=== PATIENT | female | born 1990 | race Caucasian/White ===

== ENCOUNTER 2018-06-09 09:52 | Emergency (ER) | payer BC, OTHER ==
[2018-06-09 10:12] VITALS: BP 110/75
--- NOTE | 2018-06-09 10:31 | UC ---
Complaint Female HPI - HPI Summary HPI Summary: Patient comes to the urgent care today with 3 days of pain with urination. Patient denies vaginal discharge has been with same partner for the past 6 years. Patient had BV last month and is concerned she might have a return of the same. No fevers back pain. - History Of Current Complaint Chief Complaint: UCGU Stated Complaint: PERSONAL Time Seen by Provider: 06/09/18 10:01 Hx Obtained From: Patient Hx Last Menstrual Period: "two weeks ago" ?: No Onset/Duration: Sudden Onset, Lasting Days - 3, Still Present Timing: Constant Severity Initially: Mild Severity Currently: Mild Pain Intensity: 2 Pain Scale Used: 0-10 Numeric Character: Burning - with urination Aggravating Factor(s): Urination Alleviating Factor(s): Nothing Associated Signs And Symptoms: Positive: Negative - Allergies/Home Medications Allergies/Adverse Reactions: Allergies Allergy/AdvReac Type Severity Reaction Status Date / Time ciprofloxacin [From Cipro] Allergy Hives Verified 06/09/18 10:07 doxycycline Allergy Hives Verified 06/09/18 10:07 tree nut Allergy Vomiting Verified 06/09/18 10:07 Tree Nuts Allergy Vomiting Verified 06/09/18 10:07 Home Medications: Home Medications L.acidoph,Paracasei, B.lactis [Probiotic] 1 each PO ONCE 06/09/18 [History Confirmed 06/09/18] Norgestimate-Ethinyl Estradiol [Tri-Sprintec Tablet] 1 each PO DAILY 06/09/18 [ History Confirmed 06/09/18] PMH/Surg Hx/FS Hx/Imm Hx Previously Healthy: Yes - Surgical History Surgical History: None - Family History Known Family History: Positive: None - Social History Occupation: Employed Full-time Lives: With Family Alcohol Use: Weekly Substance Use Type: None Smoking Status (MU): Former Smoker Length of Time of Smoking/Using Tobacco: 11/15 PPD x 1 Year When Did the Patient Quit Smoking/Using Tobacco: ~2007 Review of Systems Constitutional: Negative Skin: Negative Eyes: Negative ENT: Negative Respiratory: Negative Cardiovascular: Negative Gastrointestinal: Negative Genitourinary: Dysuria Motor: Negative Neurovascular: Negative Musculoskeletal: Negative Neurological: Negative Psychological: Negative Is Patient Immunocompromised?: No All Other Systems Reviewed And Are Negative: Yes Physical Exam Triage Information Reviewed: Yes Appearance: Well-Appearing, No Pain Distress, Well-Nourished Vital Signs: Initial Vital Signs Temp 98.3 F 06/09/18 10:03 Pulse 60 06/09/18 10:03 Resp 16 06/09/18 10:03 BP 110/75 06/09/18 10:03 Pulse Ox 100 06/09/18 10:03 Vital Signs Reviewed: Yes Eye Exam: Normal Eyes: Positive: Conjunctiva Clear ENT Exam: Normal ENT: Positive: Normal ENT inspection, Hearing grossly normal. Negative: Nasal congestion, Trismus, Muffled voice, Hoarse voice Dental Exam: Normal Neck exam: Normal Neck: Positive: Supple, Nontender Respiratory Exam: Normal Respiratory: Positive: No respiratory distress, No accessory muscle use Cardiovascular Exam: Normal Cardiovascular: Positive: RRR, Pulses Normal, Brisk Capillary Refill Abdominal Exam: Normal Abdomen Description: Positive: Nontender, No Organomegaly, Soft Pelvic Exam: Positive: Speculum Exam Normal, Lesions - erythema superior to urethera-patient identified ars area of discomfort Musculoskeletal Exam: Normal Musculoskeletal: Positive: Strength Intact, ROM Intact Neurological Exam: Normal Neurological: Positive: Alert Psychological Exam: Normal Skin Exam: Normal Diagnostics - Laboratory Diagnostic Studies Completed/Ordered: ua WNL Complaint Female Dx - Course Course Of Treatment: Patient will use a barrier cream to protect irritated skin. Patient will maintain adequate hydration. Patient will consider using a sitz bath when necessary or pouring water over her vulva during urination to prevent discomfort referral made to [facility] swabs obtained for laboratory specimens will follow up when necessary - Differential Dx/Diagnosis Provider Diagnoses: dysuria Discharge - Sign-Out/Discharge Documenting (check all that apply): Patient Departure - Discharge Plan Condition: Stable Disposition: HOME Patient Education Materials: Dysuria (ED) Referrals: [facility] [Outside] - If Needed - Billing Disposition and Condition Condition: STABLE Disposition: Home Attestation Statement User Type: Provider - I was available for consult. This patient was seen by the RIVERA. The patient was not presented to, seen by, or examined by me. -Campos
== END 2018-06-09 10:38 | disposition home or self-care (01) ==
LOC: UCCORT 09:52
DX: Z88.1 Allergy status to other antibiotic agents (principal); Z87.891 Personal history of nicotine dependence; R30.0 Dysuria
CPT/HCPCS: 81003; 84702; 87480; 87491; 87510; 87591; 87661; 99202; G0463

== ENCOUNTER 2018-12-15 19:56 | Emergency (ER) | payer BC, OTHER ==
[2018-12-15 20:12] VITALS: BP 137/68
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
== END 2018-12-15 20:43 | disposition home or self-care (01) ==
LOC: UCCORT 19:56
DX: S06.0X0A Concussion without loss of consciousness, initial encounter (principal); S00.93XA Contusion of unspecified part of head, initial encounter; Z88.1 Allergy status to other antibiotic agents; Z91.018 Allergy to other foods; Z87.891 Personal history of nicotine dependence; W22.8XXA Striking against or struck by other objects, initial encounter; Y92.9 Unspecified place or not applicable
CPT/HCPCS: 99211; G0463

== ENCOUNTER 2019-05-26 13:16 | Emergency (ER) | payer BC ==
--- OUTSIDE RECORDS SUMMARY | 2019-05-26 13:28 | XMS REPORT | Continuity of Care Document ---
:1990 External Reference #:[id number] Author Name Andrez Bueno Address 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 Cameron Skinner MD Primary Care Physician Unavailable Payers Date Identification Numbers Payment Provider Subscriber Policy Number: [id number] BC/BS Of ART [place] PayID: [id number] [address] [address] [place] [address] Family History Date Family Member(s) Observation Comments Father rosacea Mother Hypothyroidism Paternal Grandfather Bladder Cancer Paternal Grandmother due to Lung Cancer () Maternal Grandfather due to Stroke () Maternal Grandmother due to Breast Cancer () Social History Type Date Description Comments Sex Unknown Marital Status Not Lives With Alone 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[employer] Tobacco Use Start: Unknown Never Smoked Cigarettes ETOH Use Social Alcohol weekly Tobacco Use Start: Unknown Never Smoked Cigarettes Smoking Status Reviewed: 05/22/19 Never Smoked Cigarettes Exercise Type/Frequency Exercises regularly Currently Active Patient is currently sexually active STD's No STD History Allergies, Adverse Reactions, Alerts Active Allergies Reaction Severity Comments Date Doxycycline hives,vomitting 10/04/2018 Cipro hives, vomitting 10/04/2018 Medications Active Medications SIG Qnty Indications Ordering Provider Date Tri-Sprintec take one by 84tabs Z30.8 Mckenzie Khan, 10/04/2018 mouth daily Afnp-C 0.18/0.215/0.25 mg-35 mcg Tablets History Medications Betamethasone Valerate apply to affected 45gm L50.9 Azucena Justine 04/16/2019 - area twice a day, [facility] 05/22/2019 0.1% Cream do not put on face. Ortho Tri-Cyclen (28) 1 by mouth every Unknown - day 04/16/2019 0.18/0.215/0.25 mg-35 mcg Tablets Vital Signs Date Vital Result Comment 05/22/2019 11:06am BP Systolic 116 mmHg BP Diastolic 80 mmHg Heart Rate 66 /min Body Temperature 97.8 F Respiratory Rate 15 /min Height 61 inches 5'1" Weight 102.00 lb BMI (Body Mass Index) 19.3 kg/m2 04/16/2019 3:02pm BP Systolic 100 mmHg BP Diastolic 60 mmHg Heart Rate 64 /min Body Temperature 98.6 F Respiratory Rate 16 /min Height 61 inches 5'1" Weight 103.00 lb BMI (Body Mass Index) 19.5 kg/m2 10/04/2018 6:00pm BP Systolic 100 mmHg BP Diastolic 60 mmHg Heart Rate 64 /min Body Temperature 98.6 F Respiratory Rate 16 /min Height 61 inches 5'1" Weight 100.00 lb BMI (Body Mass Index) 18.9 kg/m2 Encounters Type Date Location Provider Dx Diagnosis Office Visit 04/16/2019 Main Office Azucena Fletcher L50.9 Urticaria, unspecified 3:15p [facility] Office Visit 10/04/2018 Main Office Xin Bowser, Z30.8 Encounter for other 6:15p 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 (Follow up)AllComments:Medication Management Patient Understands medications she's taking? Yes No Are there Barriers to Adherence? Yes No Has the patient been asked about herbal supplements and therapies, and OTC meds? Yes No Care Plan1. Patient has been queried about patient's goals/preferences and functional/lifestyle goals at relevant visits. If relevant, describe: na2. Treatment goals as explained to the patient: abovecontinued sx resolution prevention heatlh maintenance and disease prevention 3. Are there barriers to meeting treatment goals? Yes No If Yes, please describe:4. Self-Management goals as described to the patient: Yes No there is no evidence of infection , looks more like a reaction or irritation that seems resolving,you can use a hydrocort cream for the itching and it ought to continue to resolve oc's will be refilled , routine rat trapper due 2020
[2019-05-26 13:35] VITALS: BP 119/77
--- NOTE | 2019-05-26 15:02 | UC ---
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 Pt c/o vaginal itch/pain x3 days. Noticed thick white vaginal discharge since yesterday. Denies any odor. No fever /chills. Nothing taken OTC. " -she has a new sexual partner and had unprotected sex. got period during intercourse. she has had yeast and BV in past. ?s trichomonas. no odor. + itchiness. feels like she gets BV when she gets her period and when she is sexually active. no lesion. - History Of Current Complaint Chief Complaint: UCGeneralIllness Stated Complaint: PERSONAL Time Seen by Provider: 05/26/19 14:55 Hx Last Menstrual Period: 05/21/19 Pain Intensity: 0 - Allergies/Home Medications Allergies/Adverse Reactions: Allergies Allergy/AdvReac Type Severity Reaction Status Date / Time ciprofloxacin [From Cipro] Allergy Hives Verified 05/26/19 13:29 doxycycline Allergy Hives Verified 05/26/19 13:29 Tree Nuts Allergy Vomiting Verified 05/26/19 13:29 PMH/Surg Hx/FS Hx/Imm Hx Previously Healthy: Yes - Surgical History Surgical History: None - Family History Known Family History: Positive: None, Cardiac Disease, Hypertension, Diabetes - Social History Alcohol Use: Occasionally Substance Use Type: None Smoking Status (MU): Former Smoker Length of Time of Smoking/Using Tobacco: 11/15 PPD x 1 Year When Did the Patient Quit Smoking/Using Tobacco: ~2007 Review of Systems All Other Systems Reviewed And Are Negative: Yes Constitutional: Positive: Negative Skin: Positive: Negative ENT: Positive: Negative Respiratory: Positive: Negative Cardiovascular: Positive: Negative Gastrointestinal: Positive: Negative Genitourinary: Positive: Negative. Negative: Dysuria, Hematuria, Frequency, Urgency Motor: Positive: Negative Neurovascular: Positive: Negative Musculoskeletal: Positive: Negative Neurological: Positive: Negative Psychological: Positive: Negative Is Patient Immunocompromised?: No Physical Exam Triage Information Reviewed: Yes Appearance: Well-Appearing, No Pain Distress, Well-Nourished Vital Signs: Initial Vital Signs Temp 98.3 F 05/26/19 13:29 Pulse 68 05/26/19 13:29 Resp 16 05/26/19 13:29 BP 119/77 05/26/19 13:29 Pulse Ox 100 05/26/19 13:29 Vital Signs Reviewed: Yes Eye Exam: Normal Respiratory Exam: Normal Respiratory: Positive: Lungs clear Cardiovascular Exam: Normal Cardiovascular: Positive: RRR Abdominal Exam: Normal Abdomen Description: Positive: Nontender, Soft. Negative: CVA Tenderness (R), CVA Tenderness (L), Distended, Guarding Musculoskeletal Exam: Normal Neurological Exam: Normal Psychological Exam: Normal Skin Exam: Normal Complaint Female Dx - Course Course Of Treatment: self swab for affirm/trich. will treat for valdemar with diflucan. will call pt to treat w/ flagyl if positive for BV or trich. she is very agreeable with this plan. cont oral OCP. recommend condoms to help prevent STDs. - Differential Dx/Diagnosis Differential Diagnosis/HQI/PQRI: Sexually Transmitted Disease, Other - yeast Provider Diagnosis: Vagina itching Discharge - Sign-Out/Discharge Documenting (check all that apply): Patient Departure All imaging exams completed and their final reports reviewed: No Studies - Discharge Plan Condition: Stable Disposition: HOME Prescriptions: Fluconazole [Diflucan] 150 mg PO ONCE #1 tab Patient Education Materials: Yeast Infection (ED) Referrals: Xin Bowser NP [Primary Care Provider] - 2 Weeks Additional Instructions: You are being treted for yeast infection/valdemar with diflucan. We are sending out a culture for trichamonas and BV. If they are positive, you should be getting a call from us to treat you with those. Follow up sooner if your symptoms increase or persist. - Billing Disposition and Condition Condition: STABLE Disposition: Home
--- NOTE | 2019-05-28 07:41 | UC ---
- Progress Note Progress Note: please call the pt. lab results : + Gardnerella / BV will call in Flagyl x 7 days Course/Dx - Diagnoses Provider Diagnoses: Vagina itching Discharge - Sign-Out/Discharge Documenting (check all that apply): Patient Departure All imaging exams completed and their final reports reviewed: No Studies - Discharge Plan Condition: Stable Disposition: HOME Prescriptions: Fluconazole [Diflucan] 150 mg PO ONCE #1 tab Patient Education Materials: Yeast Infection (ED) Referrals: Xin Bowser NP [Primary Care Provider] - 2 Weeks Additional Instructions: You are being treted for yeast infection/valdemar with diflucan. We are sending out a culture for trichamonas and BV. If they are positive, you should be getting a call from us to treat you with those. Follow up sooner if your symptoms increase or persist. - Billing Disposition and Condition Condition: STABLE Disposition: Home
== END 2019-05-26 15:16 | disposition home or self-care (01) ==
LOC: UCCORT 13:16
DX: N76.0 Acute vaginitis (principal); B96.89 Other specified bacterial agents as the cause of diseases classified elsewhere; Z88.1 Allergy status to other antibiotic agents; Z87.891 Personal history of nicotine dependence
CPT/HCPCS: 87480; 87510; 87660; 99212; G0463

== ENCOUNTER 2019-07-24 07:11 | Emergency (ER) | payer BC ==
--- OUTSIDE RECORDS SUMMARY | 2019-07-24 07:22 | XMS REPORT | Continuity of Care Document ---
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 Medicine Problems Description No Information Available Social History Type Date Description Comments Sex Unknown Tobacco Use Start: Unknown Never Smoked Cigarettes ETOH Use Social Alcohol weekly Tobacco Use Start: Unknown Never Smoked Cigarettes Smoking Status Reviewed: 06/12/19 Never Smoked Cigarettes Exercise Type/Frequency Exercises regularly Allergies, Adverse Reactions, Alerts Active Allergies Reaction Severity Comments Date Doxycycline hives,vomitting 10/04/2018 Cipro hives, vomitting 10/04/2018 Medications Active Medications SIG Qnty Indications Ordering Provider Date Tri-Sprintec take one by 84tabs N76.[address] [facility], 10/04/2018 mouth daily Afnp-C 0.18/0.215/0.25 mg-35 mcg Tablets History Medications Bactrim DS 2 po x 1 then 1 po 10tabs Azucena Fletcher 06/27/2019 - 800-160mg bid x 4 more days SUSU Justice 07/05/2019 Tablets Macrobid 1 by mouth twice a 10caps Mckenzie 06/19/2019 - 100mg Capsules day with meals x 5 [place], Afnp-C 06/27/2019 days Metronidazole take 1 tablet by 14tabs N76.0 Azucena Fletcher 06/12/2019 - 500mg mouth twice a day SUSU Justice 06/19/2019 Tablets for 7 days Metronidazole 1 applicator 45gm N76.0 Azucena Fletcher 06/12/2019 - 0.75% Gel vaginally daily as SUSU Justice 07/19/2019 needed after sex and once after menses Betamethasone apply to affected 45gm L50.9 Azucena Fletcher 04/16/2019 - Valerate area twice a day, SUSU Justice 05/22/2019 0.1% Cream do not put on face. Immunizations CPT Code Status Date Vaccine Lot # [id number] Given 05/01/2008 gardasil 9 [id number] Given 12/24/2007 gardasil 9 [id number] Given 10/18/2007 gardasil 9 76866 Given 11/02/2005 Tetanus And Diptheria Adult Preservative Free >7Yrs Vital Signs Date Vital Result Comment 07/19/2019 3:59pm BP Systolic 110 mmHg BP Diastolic 70 mmHg Heart Rate 64 /min Body Temperature 97.9 F Respiratory Rate 18 /min Height 61 inches 5'1" Weight 103.00 lb BMI (Body Mass Index) 19.5 kg/m2 06/19/2019 9:35am BP Systolic 106 mmHg BP Diastolic 60 mmHg Heart Rate 66 /min Body Temperature 98.6 F Respiratory Rate 16 /min Height 61 inches 5'1" Weight 103.25 lb BMI (Body Mass Index) 19.5 kg/m2 Results Test Date Facility Test Result H/L Range Note Ua - Micro (Fma) 06/19/2019 [facility] Appearance CLOUDY (607)- - Color YELLOW Glucose, Urine (Fma/CMC/CTX) NEG Bilirubin NEG Ketones NEG SP Grav 1.015 Blood SMALL PH 6.0 Protein NEG Urobil 0.2 Nitrite NEG Leukocytes (Fma/CMC/Centrex) SMALL Hyaline - /Lpf Granular - /Lpf WBC (Fma,[facility]) 20-23 RBC 3-5 Mucus (Fma/CBC/[facility]rex) - /Lpf Epith OCC /Lpf Bacteria 1+ /Hpf Amorphous (Fma/CMC/[facility]rex) - /Lpf Crystals, Fluid (Fma/CMC/CTX) - Z#Comments - Urine Culture And 06/19/2019 [facility] Urine Culture SEE RESULT 1 Sensitivities BELOW Vaginitis Plus Nuswab 06/12/2019 [facility] Atopobium vaginae Low - 0 Score 2 [address] [place] [address] (607)- - Bvab 2 Low - 0 Score Megasphaera 1 Low - 0 Score 3 Radha albicans, Christiane Negative Negative Radha glabrata, Christiane Negative Negative 4 Chlamydia trachomatis, Christiane Negative Negative Neisseria gonorrhoeae, Christiane Negative Negative Trich vag by Christiane Negative Negative Laboratory test 05/26/2019 [facility] Gardnerella/Yeast: Vaginal SEE RESULT 5 , 6 finding Dna BELOW 1 SEE RESULT BELOW Name: ROXANNESOHEILAY Kassandra : [address]: Mckenzie Khan NP Acct: [id number] Unit: [id number] AGE: 29 Location: [facility] Re06/19/19 SEX: F Status: REG REF SPEC: [id number] GABBY: 06/19/19-[address]: Mckenzie Khan NP REQ: [id number] RECD: 06/19/19 STATUS: COMP _ SOURCE: URINE SPDESC: ORDERED: Urine Culture COMMENTS: 1 eller urine top [id number] Urine Source: Random Procedure Result Reported Site Urine Culture Final 06/22/19- 0946 ML Organism 1 PROTEUS MIRABILIS [place] Count 75-100,000 (Many) CFU/ML 1. PROTEUS MIRABILIS M.I.C. RX --------- ------ Ampicillin S Cefazolin S Cefepime S Ceftriaxone S Ciprofloxacin <=0.25 S Gentamicin <=1 S Levofloxacin <=0.12 S Meropenem 1 S Nitrofurantoin 128 R Tetracycline >=16 R Pipercillin/Tazobactam <=4 S Trimethoprim/Sulfamethoxazole <=20 S Aztreonam S Contact the Microbiology Department for any additional antibiotic reporting. * ML - Main Lab . END OF REPORT DEPARTMENT OF PATHOLOGY, [address] [place] [address] Charles Manzo M.D. Director [facility] # [id number] 2 1 orange aptima swab 3 Calculate total score by adding the 3 individual bacterial vaginosis (BV) marker scores together. Total score is interpreted as follows: Total score 0-1: Indicates the absence of BV. Total score 2: Indeterminate for BV. Additional clinical data should be evaluated to establish a diagnosis. Total score 3-6: Indicates the presence of BV. This test was developed and its performance characteristics determined by [facility]. It has not been cleared or approved by the Food and Drug Administration. The FDA has determined that such clearance or approval is not necessary. 4 This test was developed and its performance characteristics determined by [facility]. It has not been cleared or approved by the Food and Drug Administration. The FDA has determined that such clearance or approval is not necessary. 5 Would you like to order Trichomonas Vaginalis RNA testing? 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 Y Procedure Result Reported Site Gardnerella/Yeast: Vaginal DNA Final 05/27/19- 1550 ML Organism 1 POSITIVE GARDNERELLA Organism 2 Negative Radha The presence of G. vaginalis, although suggestive, is not diagnostic for bacterial vaginosis. Results should be interpreted in conjuction with other clinical and laboratory data available. Women with vaginal discharge should be evaluated for risk factors of cervicitis and pelvic inflammatory disease, toxic shock syndrome (S.aureus), and if present, evaluated for organisms not included in this assay such as N. gonorrhoeae, C. trachomatis, Mobiluncus, Mycoplasma and/or Prevotella. Mixed infections may occur. The performance of this test on patient specimens collected during or immediately after antimicrobial therapy is unknown. The presence or absence of Radha species, or G. vaginalis cannot be used as a test for therapeutic success or failure. Trichomonas: Vaginal DNA Probe Final 05/27/19- 1550 ML Organism 1 Negative Trichomonas The presence or absence of T. vaginalis cannot be used as a test for therapeutic success or failure. * ML - Main Lab . END OF REPORT DEPARTMENT OF PATHOLOGY, [address] [place] [address] Charles Manzo M.D. Director [facility] # [id number] Procedures Description No Information Available Medical Devices Description No Information Available Encounters Type Date Location Provider Dx Diagnosis Office Visit 06/19/2019 Main Office Mckenzie Khan, N39.0 Urinary tract 9:30a Afnp-C infection, site not specified Office Visit 06/12/2019 Main Office Azucena Fletcher N76.0 Acute vaginitis 10:30a SUSU Justice Office Visit 05/22/2019 Main Office Mckenzie Antonioevelyn, S51.011A Laceration without 11:00a Afnp-C foreign body of right elbow, init encntr R21 Rash and other nonspecific skin eruption 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 W26.8xxA Contact with other sharp object(s), NEC, initial encounter Office Visit 04/16/2019 3:15p Main Office Azucena Fletcher L50.9 Urticaria, SUSU Justice unspecified Assessments Date Code Description Provider 07/19/2019 L20.9 Atopic dermatitis, unspecified Vandana Ly, MARIAJOSE 06/19/2019 N39.0 Urinary tract infection, site not Mckenzie Mariselaevelyn, Afnp-C specified 06/12/2019 N76.0 Acute vaginitis Azucena Justice NP 05/22/2019 S51.011A Laceration without foreign body of right Mckenzie Erin, Afnp-C elbow, initial enco 05/22/2019 R21 Rash and other nonspecific skin eruption Mckenzie Khan Afnp-C 05/22/2019 Z79.3 intermission coordinator (current) use of hormonal Mckenzie Bessorf, Afnp- C 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 05/22/2019 W26.8xxA Contact with other sharp object(s), not Mckenzie Mariselaevelyn , Afnp-C elsewhere classified, initial encounter 04/16/2019 L50.9 Urticaria, unspecified Azucena Justice NP Plan of Treatment 07/19/2019 - Vandana Ly, FNPL20.9 Atopic dermatitis, unspecifiedComments: conservative cares for at least 2-3 weekschange lotion and soap to nonscented, hypoallergenic such as cetaphiluse [id number]-[id number] hydrocortisone twice daily to affected areas for at least 2 weeks, maytake 3 to get to 100%Call ROB if condition changes/worsens in any wayAllComments:Medication Management Patient Understands medications he 's taking? Yes No Are there Barriers to Adherence? Yes No Has the patient been asked about herbal supplements and therapies, andOTC meds? Yes No As always, we strongly encourage a healthy diet and making physical activity a part of your every day life. If you have questions about how or where to start, please contact the office. Functional Status Description No Information Available Mental Status Description No Information Available Referrals Description No Information Available
--- OUTSIDE RECORDS SUMMARY | 2019-07-24 07:22 | XMS REPORT | Continuity of Care Document ---
:1990 External Reference #:[id number] Author Name Andrez Bueno Address [address] [facility] [place] [address] Care Team Providers Name Role Phone Cameron Skinner MD Care Team Information Clinical Trial Coordinator Unavailable Cameron Skinner MD Primary Care Physician Unavailable Payers Date Identification Numbers Payment Provider Subscriber Policy Number: [id number] BC/BS Of [employer] PayID: [id number] [address] [address] [place] [address] Family History Date Family Member(s) Observation Comments [...] Xin Bowser, Z30.8 Encounter for other 6:15p 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 (Follow up)AllComments:Medication Management Patient Understands medications she's taking? Yes No Are there Barriers to Adherence? Yes No Has the patient been asked about herbal supplements and therapies, and OTC meds? Yes No Care Plan1. Patient has been queried about patient's goals/ preferences and functional/lifestyle goals at relevant visits. If [...] resolve oc's will be refilled , routine car wiper due 2020
--- OUTSIDE RECORDS SUMMARY | 2019-07-24 07:22 | XMS REPORT | Continuity of Care Document ---
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 Problems Description No Information Available Social [...] Medications Active Medications SIG Qnty Indications Ordering Date Provider Metronidazole take 1 tablet by 14tabs N76.0 Azucena Fletcher 06/12/2019 500mg mouth twice a day SUSU Justice Tablets for 7 days Metronidazole 1 applicator 45gm N76.0 Auzcena Fletcher 06/12/2019 0.75% Gel vaginally daily as SUSU Justice needed after sex and once after menses Tri-Sprintec take one by mouth 84tabs N76.0 Mckenzie 10/04/2018 daily Andrez Khan 0.18/0.215/0.25 mg-35 mcg Tablets History Medications Betamethasone Valerate apply to affected 45gm L50.9 Azucena Fletcher 04/16/2019 - area twice a day, SUSU Justice 05/22/2019 0.1% Cream do not put on face. Immunizations Description No Information Available Vital Signs Date Vital Result Comment 06/12/2019 10:36am BP Systolic 106 mmHg BP Diastolic 60 mmHg Heart Rate 72 /min Body Temperature 98.1 F Respiratory Rate 16 /min Height 61 inches 5'1" Weight 103.12 lb BMI (Body Mass Index) 19.5 kg/m2 05/22/2019 11:06am BP Systolic 116 mmHg BP Diastolic 80 mmHg Heart Rate 66 /min Body Temperature 97.8 F Respiratory Rate 15 /min Height 61 inches 5'1" Weight 102.00 lb BMI (Body Mass Index) 19.3 kg/m2 Results Test Date Facility Test Result H/L Range Note Vaginitis Plus 06/12/2019 [facility] Atopob[facility] Low - 0 1 Nuswab [address] [facility] [place] [address] (496)- - Bvab 2 Low - 0 Score Megasphaera 1 Low - 0 Score 2 Radha albicans, Christiane Negative Negative Radha glabrata, Christiane Negative Negative 3 Chlamydia trachomatis, Christiane Negative Negative Neisseria gonorrhoeae, Christiane Negative Negative Trich vag by Christiane Negative Negative Laboratory test 05/26/2019 [facility] Gardnerella/Yeast: Vaginal SEE RESULT 4 , 5 finding Dna BELOW 1 1 orange aptima swab 2 Calculate total score by adding the 3 individual bacterial vaginosis (BV) marker scores together. Total score is interpreted as follows: Total score 0-1: Indicates the absence of BV. Total score 2: Indeterminate for BV. Additional clinical data should be evaluated to establish a diagnosis. Total score 3-6: Indicates the presence of BV. This test was developed and its performance characteristics determined by [facility]. It has not been cleared or approved by the Food and Drug Administration. The FDA has determined that such clearance or approval is not necessary. 3 This test was developed and its performance characteristics determined by [facility]. It has not been cleared or approved by the Food and Drug Administration. The FDA has determined that such clearance or approval is not necessary. 4 Would you like to order Trichomonas Vaginalis RNA testing? 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 END OF REPORT DEPARTMENT OF PATHOLOGY, [address] [place] [address] Charles Manzo M.D. 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 W26.8xxA Contact with other sharp object(s), NEC, initial encounter Office Visit 04/16/2019 3:15p Main Office Azucena Fletcher L50.9 UrticariaVinh NP unspecified Assessments Date Code Description Provider 06/12/2019 N76.0 Acute vaginitis Azucena Justice NP 05/22/2019 S51.011A Laceration without foreign body of right Andrez Bueno elbow, initial enco 05/22/2019 R21 Rash and other nonspecific skin eruption Andrez Bueno 05/22/2019 Z79.3 [facility] (current) use of hormonal Jennifer Bueno 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 05/22/2019 W26.8xxA Contact with other sharp object(s), not Andrez Bueno elsewhere classified, initial encounter 04/16/2019 L50.9 Urticaria, unspecified Azucena Justice NP Plan of Treatment 06/12/2019 - Azucena Justice, NPN76.0 Acute vaginitisNew Medication: Metronidazole 500 mg - take 1 tablet by mouth twice a day for 7 daysMetronidazole 0.75 % - 1 applicator vaginally daily as needed after sex and once after mensesComments:Avoid: douchingpanty linerspantyhoseocclusive pantsregular use of condoms may help prevent BV because semen is alkaline and may trigger symptoms for some womenYou can resume sexual relations once you are feeling betterAllComments:Medication Management Patient Understands medications he 's taking? Yes No Are there Barriers to Adherence? Yes No Has the patient been asked about herbal supplements and therapies, andOTC meds ? Yes No Care Plan1. Patient has been queried about patient's goals/preferences and functional/lifestyle goals at relevant visits. If relevant, describe: na2. Treatment goals as explained to the patient: above3. Are there barriers to meeting treatment goals? Yes No If Yes, please describe:4. Self-Management goals as described to the patient: Yes NoAs always, we strongly encourage a healthy diet and making physical activity a part of your every day life. If you have questions about how or where to start, please contact the office. Functional Status Description No Information Available Mental Status Description No Information Available Referrals Description No Information Available
--- OUTSIDE RECORDS SUMMARY | 2019-07-24 07:22 | XMS REPORT | Continuity of Care Document ---
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 Immunizations CPT Code Status Date Vaccine Lot # [id number] Given 05/01/2008 gardasil 9 [id number] Given 12/24/2007 gardasil 9 67845 Given 10/18/2007 gardasil 9 20616 Given 11/02/2005 Tetanus And Diptheria Adult Preservative Free >7Yrs Vital Signs Date Vital Result Comment 06/19/2019 9:35am BP Systolic 106 mmHg BP Diastolic 60 mmHg Heart Rate 66 /min Body Temperature 98.6 F Respiratory Rate 16 /min Height 61 inches 5'1" Weight 103.25 lb BMI (Body Mass Index) 19.5 kg/m2 06/12/2019 10:36am BP Systolic 106 mmHg BP Diastolic 60 mmHg Heart Rate 72 /min Body Temperature 98.1 F Respiratory Rate 16 /min Height 61 inches 5'1" Weight 103.12 lb BMI (Body Mass Index) 19.5 kg/m2 Results Test Date Facility Test Result H/L Range Note Vaginitis Plus 06/12/2019 [facility] At[facility] Low - 0 1 Nuswab [address] [facility] [place] [address] (411)- - Bvab 2 Low - 0 Score Megasphaera 1 Low - 0 Score 2 Ardha albicans, Christiane Negative Negative Radha glabrata, Christiane [...] developed and its performance characteristics determined by [facility]. It has not been cleared or approved by the Food and Drug Administration. The FDA has determined that such clearance or approval is not necessary. 3 This test was developed and its performance characteristics determined by [facility]. It has not been cleared or approved by the Food and Drug Administration. The FDA has determined that such clearance or approval is not necessary. 4 Would you like to order Trichomonas Vaginalis RNA testing? 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 END OF REPORT DEPARTMENT OF PATHOLOGY, [address] [place] [address] Charles Manzo M.D. Director [facility] # [id number] Procedures Description No Information Available Medical Devices Description No Information Available Encounters Type Date Location Provider Dx Diagnosis Office Visit 06/12/2019 Main Office Azucena Fletcher N76.0 Acute vaginitis 10:30a SUSU Justice Office Visit 05/22/2019 Main Office Mckenzie Khan, S51.011A Laceration without 11:00a Afnp-C foreign body of right elbow, init encntr R21 Rash and other nonspecific skin eruption Z79.3 [facility] (current) use of hormonal 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 W26.8xxA Contact with other sharp object(s), NEC, initial encounter Office Visit 04/16/2019 3:15p Main Office Azucena Fletcher L50.9 Urticaria, SUSU Justice unspecified Assessments Date Code Description Provider 06/19/2019 N39.0 Urinary tract infection, site not Rangelnp-C specified 06/12/2019 N76.0 Acute vaginitis Azucena Justice, SUSU 05/22/2019 S51.011A Laceration without foreign body of right Mckenzie Khan, Afnp-C elbow, initial enco 05/22/2019 R21 Rash and other nonspecific skin eruption Mckenzie Khan, Afnp-C 05/22/2019 Z79.3 [facility] (current) use of hormonal Rangelnp- C 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 05/22/2019 W26.8xxA Contact with other sharp object(s), not Mckenzie Khan , Riananp-C elsewhere classified, initial encounter 04/16/2019 L50.9 Urticaria, unspecified Azucena Justice NP Plan of Treatment 06/19/2019 - Rangelnp-CN39.0 Urinary tract infection, site not specifiedAllNew Medication:Macrobid 100 mg - 1 by mouth twice a day with meals x 5 daysComments:Medication Management Patient Understands medications she's taking? Yes no Are there Barriersto Adherence? Yes No na Has the patient been asked about herbal supplements and therapies, andOTC meds? Yes No Care Plan1. Patient has been queried about patient's goals/ preferences and functional/lifestyle goals at relevant visits. If relevant, describe: na2. Treatment goals as explained to the patient: abovesx resolution 3. Are there barriers to meeting treatment goals? Yes No If Yes, please describe:4. Self-Management goals as described to the patient: Yes No start antibx if sx worsen otherwise push fluids and await culture Functional Status Description No Information Available Mental Status Description No Information Available Referrals Description No Information Available
[2019-07-24 07:24] VITALS: BP 118/76
[2019-07-24] MEDS ORDERED: Sulfamethox/Trimethoprim DS 800/160* TAB PO ONE (07:48)
--- NOTE | 2019-07-24 07:49 | UC ---
Complaint Female HPI - HPI Summary HPI Summary: 29-year-old woman comes in with a chief complaint of burning with urination and increased frequency and urgency all started last evening. No fevers no chills. Denies any suprapubic pain or flank pain. Denies any abnormal vaginal discharge or any concern of STI. She had a urinary tract infection in June 2019 which was successfully treated with Bactrim. - History Of Current Complaint Chief Complaint: UCGU Stated Complaint: URINARY COMPLAINT Time Seen by Provider: 07/24/19 07:23 Hx Last Menstrual Period: 05/21/19 Pain Intensity: 0 - Allergies/Home Medications Allergies/Adverse Reactions: Allergies Allergy/AdvReac Type Severity Reaction Status Date / Time ciprofloxacin [From Cipro] Allergy Hives Verified 07/24/19 07:24 doxycycline Allergy Hives Verified 07/24/19 07:24 Tree Nuts Allergy Vomiting Verified 07/24/19 07:24 PMH/Surg Hx/FS Hx/Imm Hx Previously Healthy: Yes - Surgical History Surgical History: None - Family History Known Family History: Positive: None, Cardiac Disease, Hypertension, Diabetes - Social History Alcohol Use: Occasionally Substance Use Type: None Smoking Status (MU): Former Smoker Length of Time of Smoking/Using Tobacco: 11/15 PPD x 1 Year When Did the Patient Quit Smoking/Using Tobacco: ~2007 Review of Systems All Other Systems Reviewed And Are Negative: Yes Constitutional: Positive: Negative Skin: Positive: Negative Eyes: Positive: Negative ENT: Positive: Negative Respiratory: Positive: Negative Cardiovascular: Positive: Negative Gastrointestinal: Positive: Negative Motor: Positive: Negative Neurovascular: Positive: Negative Musculoskeletal: Positive: Negative Neurological: Positive: Negative Psychological: Positive: Negative Is Patient Immunocompromised?: No Physical Exam Triage Information Reviewed: Yes Appearance: Well-Appearing, No Pain Distress, Well-Nourished Vital Signs: Initial Vital Signs Temp 98.8 F 07/24/19 07:21 Pulse 72 07/24/19 07:21 Resp 14 07/24/19 07:21 BP 118/76 07/24/19 07:21 Pulse Ox 100 07/24/19 07:21 Vital Signs Reviewed: Yes Eye Exam: Normal Eyes: Positive: Conjunctiva Clear Neck: Positive: Supple Respiratory: Positive: Lungs clear, Normal breath sounds, No respiratory distress Cardiovascular: Positive: RRR Abdomen Description: Positive: Nontender. Negative: CVA Tenderness (R), CVA Tenderness (L) Musculoskeletal: Positive: ROM Intact Neurological: Positive: Alert, Muscle Tone Normal Psychological: Positive: Age Appropriate Behavior Skin Exam: Normal Complaint Female Dx - Course Course Of Treatment: Patient was successfully treated for her urinary tract infection in June with Bactrim therefore we'll treat with Bactrim again. Patient also had bacterial vaginosis in May 2019 she denies any abnormal vaginal discharge or concern of a vaginitis or STI at this time. Follow-up with her primary care doctor if she is having recurrent urinary tract infections. Reevaluate sooner if worse or not improving or any questions or concerns. - Differential Dx/Diagnosis Provider Diagnosis: UTI (urinary tract infection) Discharge ED - Sign-Out/Discharge Documenting (check all that apply): Patient Departure All imaging exams completed and their final reports reviewed: No Studies - Discharge Plan Condition: Stable Disposition: HOME Prescriptions: Sulfamethox/Trimethoprim DS* [Bactrim DS 800/160 TAB*] 1 tab PO BID #13 tab Patient Education Materials: Urinary Tract Infection in Women (ED) Referrals: Xin Bowser NP [Primary Care Provider] - Additional Instructions: FOLLOW UP WITH YOUR DOCTOR IF NOT COMPLETELY IMPROVED. GET REEVALUATED SOONER IF WORSE OR ANY QUESTIONS OR CONCERNS. - Billing Disposition and Condition Condition: STABLE Disposition: Home
--- NOTE | 2019-07-26 07:14 | UC ---
- Progress Note Progress Note: + E. Coli + Proteus on bactrim await sensitivity no change ljj Course/Dx - Diagnoses Provider Diagnoses: UTI (urinary tract infection) Discharge ED - Sign-Out/Discharge Documenting (check all that apply): Post-Discharge Follow Up All imaging exams completed and their final reports reviewed: No Studies - Discharge Plan Condition: Stable Disposition: HOME Prescriptions: Sulfamethox/Trimethoprim DS* [Bactrim DS 800/160 TAB*] 1 tab PO BID #13 tab Patient Education Materials: Urinary Tract Infection in Women (ED) Referrals: Xin Bowser NP [Primary Care Provider] - Additional Instructions: FOLLOW UP WITH YOUR DOCTOR IF NOT COMPLETELY IMPROVED. GET REEVALUATED SOONER IF WORSE OR ANY QUESTIONS OR CONCERNS. - Billing Disposition and Condition Condition: STABLE Disposition: Home
== END 2019-07-24 07:53 | disposition home or self-care (01) ==
LOC: UCCORT 07:11
DX: N39.0 Urinary tract infection, site not specified (principal); B96.20 Unspecified Escherichia coli [E. coli] as the cause of diseases classified elsewhere; B96.4 Proteus (mirabilis) (morganii) as the cause of diseases classified elsewhere; Z87.891 Personal history of nicotine dependence
CPT/HCPCS: 81003; 84702; 87077; 87086; 87186; 99212; A9270-GY; G0463

== ENCOUNTER 2020-01-19 07:08 | Emergency (ER) | payer BC ==
--- OUTSIDE RECORDS SUMMARY | 2020-01-19 07:14 | XMS REPORT | Continuity of Care Document ---
:1990 External Reference #:[id number] Author Name Solomon Santos CNM Address [address] [place] [address] Care Team Providers Name Role Phone Cameron Skinner [facility] Care Team Information [employer] Problems Description No Active Problems Social History Type Date Description Comments Sex Unknown Tobacco Use Start: Unknown Never Smoked Cigarettes ETOH Use Occasionally consumes alcohol Recreational Drug Use Denies Drug Use Tobacco Use Start: Unknown Patient has never smoked Smoking Status Reviewed: 11/28/19 Patient has never smoked Seat Belt/Car Seat Always uses seat belt Allergies, Adverse Reactions, Alerts Active Allergies Reaction Severity Comments Date Doxycycline Hives Severe 10/10/2019 Ciprofloxacin Hives Severe 10/10/2019 Medications Active Medications SIG Qnty Indications Ordering Date Provider Metronidazole insert one 70gm Kellee Bazan, 10/15/2019 0.75% Gel applicator (5gm) of CNM gel into the vagina at night twice weekly after completing the oral treatment Tri-Sprintec 1 by mouth every Unknown day 0.18/0.215/0.25 mg-35 mcg Tablets Probiotic Unknown Capsules History Medications Metronidazole take one by 14tabs Kellee Bazan, 10/15/2019 - 500mg Tablets mouth twice CNM 11/28/2019 daily for 7 days Medications Administered in Office Medication SIG Qnty Indications Ordering Provider Date PT SCRN Tbco Id as Non User Solomon Santos CNM 11/28/2019 Injection PT SCRN Tbco Id as Non User Solomon Santos CNM 10/10/2019 Injection Immunizations Description No Information Available Vital Signs Date Vital Result Comment 11/28/2019 8:56am BP Systolic 106 mmHg BP Diastolic 58 mmHg Height 61 inches 5'1" Weight 110.00 lb BMI (Body Mass Index) 20.8 kg/m2 0 Parity 0 10/10/2019 9:01am BP Systolic 104 mmHg BP Diastolic 64 mmHg Height 61 inches 5'1" Weight 109.00 lb BMI (Body Mass Index) 20.6 kg/m2 Last Menstrual Period [id number] 0 Parity 0 Results Test Acquired Facility Test Result H/L Range Note Date Laboratory 11/28/2019 [facility] Gardnerella/Y <pending> [place] [address] east: Vaginal [phone] Dna HIV 1&2 p24 10/10/2019 [facility] HIV 4th [place] [address] Generation [phone] Laboratory 10/10/2019 [facility] Hepatitis B Nonreactive Nonreactive 1 [place] [address] Surface Ag [phone] Hepatitis C 10/10/2019 [facility] HCV Index 0.01 s/[place] [address] [phone] Hepatitis C Antibody Negative Negative Laboratory test 10/10/2019 [facility] Syphillis Igg Negative Negative 2 [place] [address] W/Reflex RPR [phone] TSH 0.68 mcIU/mL Normal 0.34-5.60 3 T4 Free 1.18 ng/dL High 0.61-1.12 4 CBC With No 10/10/2019 [facility] White Blood 7.2 10^3/uL Normal 3.5-10.8 [place] [address] Count [phone] Red Blood Count 4.53 10^6/uL Normal 3.70-4.87 Hemoglobin 13.6 g/dL Normal 12.0-16.0 Hematocrit 40 % Normal 35-47 Mean Corpuscular Volume 89 fL Normal 80-97 Mean Corpuscular Hemoglobin 30 pg Normal 27-31 Mean Corpuscular HGB Conc 34 g/dL Normal 31-36 Red Cell Distribution Width 13 % Normal 10-15 Platelet Count 309 10^3/uL Normal 150-450 Mean Platelet Volume 9.6 fL Normal 7.4-10.4 Laboratory test 10/10/2019 [facility] Cytology SEE RESULT 5 [place] [address] BELOW [phone] GC/Chlamydia Dna 10/10/2019 [facility] GCCHL Disclaimer (SEE NOTE) [address] [place] [address] [phone] Chlamydia trachomatis Christiane Negative Negative Neisseria gonorrhoeae (GC) Christiane Negative Negative Laboratory test 10/10/2019 [facility] Trichomonas Negative Negative 7 finding [place] [address] vaginalis Christiane [phone] Laboratory test 10/10/2019 [facility] Gardnerella/Yea SEE RESULT 8 finding [place], [place] [address] st: Vaginal Dna BELOW [phone] 1 [id number] 2 [id number] 4 [id number] 5 SEE RESULT BELOW Name: BRIDGETT MALONEY : [address]: Solomon KAY Acct: [id number] Unit: [id number] AGE: 29 Location: [facility] Re10/10/19 SEX: F Status: REG REF SPEC: [id number] GABBY: 10/10/19-[address] [facility] [address]: Solomon Santos CNM REQ: [id number] RECD: 10/10/19 STATUS: SOUT _ ORDERED: TP IMAGE ANALYS COMMENTS: [id number] FINAL DIAGNOSIS Negative for Intraepithelial lesion or Malignancy SPECIMEN(S) RECEIVED A. Ectocervical/Endocervical CYTOLOGY ADEQUACY Specimen Adequacy: Satisfactory of evaluation Transformation zone component not identified CYTOLOGY PATIENT INFORMATION Patient Information: HPV: Thin Layer Pap Test w/reflex to high risk HPV RNA testing when ASCUS Actual Specimen Date: 10/10/19 Last Menstrual Date: 10/10/19 Spec Date if unknown: unknown ?: N Post Menopausal?: N Hysterectomy?: N Previous Abnormal Pap Smears?:N Signed by and Reported on: SHAHEEN Arreaga(ASCP) 1223 This Pap test was evaluated with the assistance of the [employer] Network[employer] Test Imaging System. Due to cytologic findings at the jelly filter tender microscope, comprehensive manual rescreening by a Medical Staffing Coordinator may be required. The Pap Smear is a screening test designed to aid in the detection of premalignant and malignant conditions of the uterine cervix. It is not a diagnostic procedure and should not be used as the sole means of detecting cervical cancer. Both false- positive and false- negative reports do occur. Depending on your risk status, a Pap smear should be obtained and evaluated every 1-3 years. CONTINUED ON NEXT PAGE DEPARTMENT OF PATHOLOGY, [address] [place] [address] Charles Manzo M.D. Director [facility] # [id number] 6 As with all diagnostic procedures, the laboratory results obtained should be used in conjunction with other clinical information available to the physician, including confirmation by another method, as applicable. 7 As with all diagnostic procedures, the laboratory results obtained should be used in conjunction with other clinical information available to the physician, including confirmation by another method, as applicable. 8 SEE RESULT BELOW Name: JANAMARCELOBRIDGETT : [address]: Solomon Santos [facility] Acct: [id number] Unit: [id number] AGE: 29 Location: [facility] Re10/10/19 SEX: F Status: REG REF SPEC: [id number] GABBY: 10/10/19-[address] [facility] [address]: Solomon Santos [facility] REQ: [id number] RECD: 10/10/19 STATUS: COMP _ SOURCE: VAGINAL SPDESC: ORDERED: Lara,Yeast DNA COMMENTS: [id number] Would you like to order Trichomonas Vaginalis testing? Yes Procedure Result Reported Site Gardnerella/Yeast: Vaginal DNA Final 10/11/19- 1146 ML Organism 1 POSITIVE GARDNERELLA Organism 2 [...] . END OF REPORT DEPARTMENT OF PATHOLOGY, [address] [place] [address] Charles Manzo M.D. Director [facility] # [id number] Procedures Description No Information Available Medical Devices Description No Information Available Encounters Type Date Location Provider Dx Diagnosis Office Visit 10/10/2019 [facility] Office Solomon Santos CNM Z01.411 Encntr for zigzagger exam 9:00a (general) (routine) w abnormal findings N93.0 Postcoital and contact bleeding Z11.3 Encntr screen for infections w sexl mode of transmiss Assessments Date Code Description Provider 11/28/2019 N76.0 Acute vaginitis Solomon Santos CNM 11/28/2019 N93.0 Postcoital and contact bleeding Solomon Santos CNM 10/10/2019 Z01.411 Encounter for gynecological examination Solomon Santos CNM (general) (routine) with abnormal findings 10/10/2019 N93.0 Postcoital and contact bleeding Solomon Santos CNM 10/10/2019 Z11.3 Encounter for screening for infections with a Solomon Santos CNM predominantly sexual mode of transmission Plan of Treatment 11/28/2019 - ELIZA BarrientosMN76.0 Acute vaginitisComments:I will contact you based on the result of your culture today. If you get noticeable symptoms please contact us for further [email or web address] Postcoital and contact bleedingComments:Continue to monitor and if symptoms return follow-up with me in the office Functional Status Description No Information Available Mental Status Description No Information Available Referrals Description No Information Available
[2020-01-19 07:24] VITALS: BP 122/78
--- NOTE | 2020-01-19 08:12 | UC ---
Complaint Female HPI - HPI Summary HPI Summary: 29-year-old female comes in with a chief complaint of concern of . Patient is on oral 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. She believes she was taking them in the wrong order. Has felt some breast tenderness. - History Of Current Complaint Chief Complaint: UCGU Stated Complaint: PERSONAL Time Seen by Provider: 01/19/20 07:36 Hx Last Menstrual Period: 01/01/20 Pain Intensity: 0 - Allergies/Home Medications Allergies/Adverse Reactions: Allergies Allergy/AdvReac Type Severity Reaction Status Date / Time ciprofloxacin [From Cipro] Allergy Hives Verified 01/19/20 07:24 doxycycline Allergy Hives Verified 01/19/20 07:24 Tree Nuts Allergy Vomiting Verified 01/19/20 07:24 Home Medications: Home Medications Norgestimate-Ethinyl Estradiol [Tri-Sprintec Tablet] 1 each PO DAILY 06/09/18 [ History Confirmed 01/19/20] PMH/Surg Hx/FS Hx/Imm Hx Previously Healthy: Yes - Surgical History Surgical History: None - Family History Known Family History: Positive: None, Cardiac Disease, Hypertension, Diabetes - Social History Alcohol Use: Occasionally Substance Use Type: None Smoking Status (MU): Former Smoker Length of Time of Smoking/Using Tobacco: 11/15 PPD x 1 Year When Did the Patient Quit Smoking/Using Tobacco: ~2007 Review of Systems All Other Systems Reviewed And Are Negative: Yes Constitutional: Positive: Other - SEE HPI Skin: Positive: Negative Eyes: Positive: Negative ENT: Positive: Negative Respiratory: Positive: Negative Cardiovascular: Positive: Negative Gastrointestinal: Positive: Negative Motor: Positive: Negative Neurovascular: Positive: Negative Musculoskeletal: Positive: Negative Neurological/Mental Status: Positive: Negative Psychological: Positive: Negative Is Patient Immunocompromised?: No Physical Exam Triage Information Reviewed: Yes Appearance: Well-Appearing, No Pain Distress, Well-Nourished Vital Signs: Initial Vital Signs Temp 98.9 F 01/19/20 07:16 Pulse 76 01/19/20 07:16 Resp 16 01/19/20 07:16 BP 122/78 01/19/20 07:16 Pulse Ox 100 01/19/20 07:16 Vital Signs Reviewed: Yes Eye Exam: Normal Eyes: Positive: Conjunctiva Clear Neck: Positive: Supple Respiratory: Positive: Lungs clear, Normal breath sounds, No respiratory distress Cardiovascular: Positive: RRR Musculoskeletal: Positive: Strength Intact, ROM Intact Neurological: Positive: Alert, Muscle Tone Normal Psychological: Positive: Normal Response To Family, Age Appropriate Behavior Skin Exam: Normal Complaint Female Dx - Course Course Of Treatment: test is negative. Patient plans on using Plan B. Also will use alternative method of control and wait for her menstrual cycle and then restart her control. - Differential Dx/Diagnosis Provider Diagnosis: Encounter for control Discharge ED - Sign-Out/Discharge Documenting (check all that apply): Patient Departure All imaging exams completed and their final reports reviewed: No Studies - Discharge Plan Condition: Stable Disposition: HOME Patient Education Materials: Oral Contraceptives (By mouth) Referrals: Cameron Skinner MD [Primary Care Provider] - Additional Instructions: FOLLOW UP WITH YOUR DOCTOR IF NOT COMPLETELY IMPROVED. GET REEVALUATED SOONER IF NOT IMPROVED OR WORSE OR ANY QUESTIONS OR CONCERNS. - Billing Disposition and Condition Condition: STABLE Disposition: Home
== END 2020-01-19 08:21 | disposition home or self-care (01) ==
LOC: UCCORT 07:08
DX: Z30.9 Encounter for contraceptive management, unspecified (principal); Z88.1 Allergy status to other antibiotic agents; Z91.018 Allergy to other foods; Z87.891 Personal history of nicotine dependence
CPT/HCPCS: 84702; 99211; G0463